=== PATIENT | female | born 1935 | race Caucasian/White ===

== ENCOUNTER 2019-11-02 09:51 | Outpatient (CLI) | payer MEDICARE, SELFPAY ==
--- NOTE | ~2019-11-02 | XR_ITS ---
EXAMINATION: XR chest 2V DATE: 11/02/2019 11:22 INDICATION: Hypertension TECHNIQUE: Frontal and lateral views of the chest are obtained COMPARISON: None FINDINGS: The lungs are free of acute opacities. There is no pleural effusion or pneumothorax. The ca rdiomediastinal silhouette is normal. There is moderate thoracic spondylosis. Calcified atheroscleros is is noted. IMPRESSION: 1. No acute cardiopulmonary abnormality. Reviewed, dictated and finalized at location A. EBACK RIDING INSTRUCTOR
[2019-11-02 11:18] LABS: Basophils Absolute Auto 0.1 K/mm3 (0.0-0.1); Basophils Percent Auto 0.8 % (0.2-1.2); Eosinophils Percent Auto 0.7 % (0-4.4); Hematocrit 47.1 % (37.0-47.0); Hemoglobin 15.1 g/dL (12.0-15.0); Immature Granulocyte Absolute 0.03 K/mm3 (0.00-0.031); Immature Granulocyte Percent A 0.5 % (0-0.5); Lymphocytes Absolute Auto 1.18 K/mm3 (0.9-3.2); Lymphocytes Percent Auto 19.7 % (18.3-44.2); Mean Corpuscular HGB Conc 32.1 g/dl (32-36); Mean Corpuscular Hemoglobin 28.5 pg (26-34); Mean Corpuscular Volume 88.9 fl (80-100); Mean Platelet Volume 9.5 fl (7.4-10.4); Monocytes Absolute Auto 0.5 K/mm3 (0.1-0.6); Monocytes Percent Auto 8.5 % (2.6-8.5); Neutrophils Absolute Auto 4.2 K/mm3 (1.3-6.7); Neutrophils Percent Auto 69.8 % (45.5-73.1); Platelet Count Result 268 k/mm3 (150-375); Red Cell Distribution Width 13.1 % (11.5-14.5)
[2019-11-02 11:26] LABS: Urine Cotinine NEGATIVE
[2019-11-02 11:31] LABS: Albumin Level 4.2 g/dL (3.5-5.1); Blood Urea Nitrogen 14 mg/dL (7-17); Calcium 9.6 mg/dL (8.4-10.2); Carbon Dioxide 29 mmol/L (22-30); Chloride 98 mmol/L (98-107); Estimated Glomerular Filt Rate > 60; Glucose 89 mg/dL (65-105); Potassium 3.7 mmol/L (3.4-5.0); Sodium 137 mmol/L (137-145)
[2019-11-02 12:33] LABS: Hemoglobin A1C 5.3 % (<5.7)
== END 2019-11-02 09:52 | disposition home or self-care (01) ==
PROVIDERS: PCP Family Medicine; Visit Provider Orthopaedic Surgery
DX: Z01.818 Encounter for other preprocedural examination (principal); R06.09 Other forms of dyspnea; I10 Essential (primary) hypertension; Z79.899 Other long term (current) drug therapy
CPT/HCPCS: 36415; 71046; 80048; 80307; 82040; 83036; 85025; 87070

== ENCOUNTER 2019-11-24 17:20 | Observation (INO) | payer MEDICARE, SELFPAY ==
[2019-11-02 10:20] VITALS: BP 190/86; PULSE 78; RESP 20; TEMP 36.6; O2SAT 98; BMI 27.3
--- NOTE | 2019-11-23 06:57 | HP_ITS ---
DATE OF SERVICE: 11/24/2019 ADMIT DIAGNOSIS: Degenerative joint disease, right knee. HISTORY OF PRESENT ILLNESS: The patient is an 84-year-old female patient of Dr. De La Cruz, who presents today for right total knee arthroplasty. She has been having pain in both of her knees for years, right greater than left. She has had viscosupplementation injections in 2016. She had cortisone injections about 10 months ago, which gave her minimal relief. She has been on meloxicam for the last year and a half, but continues to have severe symptoms in the knees, particularly on the right. She has advanced medial compartment arthritis in the right knee with prominent subluxation of the femur on the tibia. She is miserable on a daily basis and feels she would like to proceed with total knee arthroplasty at this point. PAST SURGERIES: She has had rotator cuff surgery done in , bunion surgery in , hysterectomy in 1976, gallbladder in , knee arthroscopy of the right knee in 2003. CURRENT MEDICATIONS: She takes amlodipine, benazepril 5/10 mg, meloxicam 15 mg daily, omeprazole 20 mg daily, ranitidine 150 mg daily. ALLERGIES: SHE IS ALLERGIC TO PENICILLIN, WHICH GIVES HER HIVES. ALSO, TRAMADOL CAUSED HER TO PASS OUT. SOCIAL HISTORY: She is a nonsmoker. REVIEW OF SYSTEMS: Negative. FAMILY HISTORY: Noncontributory. PHYSICAL EXAM: VITAL SIGNS: She is 5 feet 2 inches, 156 pounds. Other vital signs per nursing on the morning of surgery. HEENT: Grossly normal. LUNGS: Clear bilaterally. HEART: Regular rate and rhythm. EXTREMITIES: Her right knee range of motion is from 7 to 135 with a moderate effusion. No medial pseudolaxity to valgus stress. She has positive [place] maneuver. Muvd-pr-kofpbocn venous varicosities in both lower extremities. No history of DVT. No edema in the lower extremities. She has arthroscopy scars in the anterior aspect of the right knee. 2+ dorsalis pedis, absent posterior tibial pulse. Skin is all normal. Hip range of motion is full without discomfort. Negative Stinchfield maneuver. X-RAYS: Again showed advanced medial compartment arthritis with prominent medial subluxation of the femur on the tibia. Moderate hypertrophic patellofemoral changes as well. IMPRESSION: The patient has severe advanced medial compartment arthritis. It is very symptomatic. She would like to proceed with total knee arthroplasty. Surgical procedure as well as risks and complications were discussed. All questions were answered to proceed. The patient will avoid her meloxicam and any other aspirin, ibuprofen products 1 week prior to surgery. She will see Dr. De La Cruz for presurgical clearance. She is also going to see Dr. Painter, bean weigher for presurgical clearance. She underwent a stress test, which showed no definite evidence of ischemia or infarct, normal left ventricular ejection fraction at 93%. Nasal swab was negative. Chem panel is all within normal limits. Creatinine is 0.80 with GFR greater than 60. Hemoglobin is 15.1, platelets are 268. D I MT: Otilia
[2019-11-24] VITALS (12 sets, daily range): BP systolic 137–172; BP diastolic 57–78; PULSE 65–92; RESP 16–20; TEMP 36.2–37.2; O2SAT 95–100; BMI 27.3
--- NOTE | ~2019-11-24 | XR_ITS ---
EXAMINATION: XR knee RT 2V DATE: 11/24/2019 16:05 REPLANTING MACHINE CREWMAN INDICATION: Right total knee arthroplasty TECHNIQUE: 2 views right knee FINDINGS: There is a right total knee arthroplasty in expected position. Subcutaneous gas with fluid and air in the joint are consistent with recent surgery. No evidence of periprosthetic fracture. IMPRESSION: 1. Recent right total knee arthroplasty. Reviewed, dictated and finalized at location A. ANTING MACHINE CREWMAN
[2019-11-24] MEDS: LACTATED RINGERS 1,000 ML 30 ML IV CONT ×2 (10:25→15:50)
[2019-11-24] MEDS: IBUPROFEN IV 800 MG/200 ML 800 MG/200 ML BAG 400 MG IVPB (10:30)
--- NOTE | 2019-11-24 10:32 | WPDANESEPPF ---
Anes - Initial Pre Proc Eval Procedure: Operation Date: 11/24/19 12:00 Proposed Procedures p Right Total Knee Arthroplasty - Ford Aponte MD Date/Time: 11/24/19 10:32 Surgeon: Ford Aponte MD Pre Op Diagnosis: OA Right Knee Patient Data Age: 84 Gender: F Height: 1.57 m Weight: 67.9 kg Last Vital Signs Temp 36.6 C 11/02/19 10:20 Pulse 78 11/02/19 10:20 Resp 20 11/02/19 10:20 BP 190/86 H 11/02/19 10:20 Pulse Ox 98 11/02/19 10:20 Allergies Allergy/AdvReac Type Severity Reaction Status Date / Time Penicillins Allergy Swelling Verified 11/24/19 10:34 tramadol Allergy Fainting Verified 11/24/19 10:34 Home Medications Medication Instructions Recorded Confirmed Type amlodipine 2.5 mg-benazepril 10 mg 1 cap PO DAILY 09/20/19 11/02/19 History capsule calcium carbonate 600 mg (1,500 1 tablet PO BID 09/20/19 11/02/19 History mg)-vitamin D3 200 unit tablet cholecalciferol (vitamin D3) 25 1,000 unit PO DAILY 09/20/19 11/02/19 History mcg (1,000 unit) capsule docusate sodium 100 mg capsule 100 mg PO BID 09/20/19 11/02/19 History ferrous sulfate 325 mg (65 mg 325 mg PO BID 09/20/19 11/02/19 History iron) tablet meloxicam 15 mg tablet 15 mg PO DAILY PRN 09/20/19 11/02/19 History omeprazole 20 mg capsule,delayed 20 mg PO DAILY 09/20/19 11/02/19 History release psyllium husk 0.52 gram capsule 0.52 gm PO DAILY 09/20/19 11/02/19 History ranitidine HCl 150 mg tablet 150 mg PO BID 09/20/19 11/02/19 History vitamin B complex 1 tablet PO DAILY 09/20/19 11/02/19 History EC08/2019 - sr, lafb Other Studies: DATE: 10/06/2019 11:37 RN CARE TRANSITION INDICATION: Dyspnea. Chest pain. TECHNIQUE: Rest images were obtained following intravenous administration of 9.2 mCi Tc99m tetrofosmin (Myoview). The patient was infused intravenously with Lexiscan (regadenoson). Then, 28.5 mCi Tc99m tetrofosmin (Myoview) was administered intravenously, and stress images were obtained. Data was reconstructed into short axis and horizontal and vertical long axis SPECT images. Gated SPECT images were also obtained. COMPARISON: None. FINDINGS: There is no definite reversible or fixed perfusion abnormality to suggest ischemia or infarction. There is no segmental wall motion abnormality. Left ventricular ejection fraction measures 93%. IMPRESSION: 1. No definite ischemia or infarct. 2. Normal left ventricular ejection fraction measuring 93%. Reviewed, dictated and finalized at location A. CARE TRANSITION Exam Date: 10/06/2019 8:12 AM Complete two-dimensional, color flow and Doppler transthoracic echocardiogram is performed. Summary 1. Left ventricular chamber dimension is normal. 2. Left ventricular systolic function is normal, estimated at 65-70%. 3. There is mildly increased left ventricular wall thickness. 4. The left ventricular diastolic function is grade I diastolic dysfunction. 5. E/e' 13 is mildly elevated. 6. There is mild aortic valve sclerosis. 7. Moderate mitral annular calcification. 8. No pulmonary hypertension, estimated pulmonary arterial systolic pressure is 32 mmHg. Patient hx anesthesia problems: post op nausea/vomiting Family hx anesthesia problems: none PMFSH Past Medical History Medical History (Updated 11/24/19 @ 10:33 by Dung Fry MD) Anemia Arthritis Chronic headaches CARVER (dyspnea on exertion) Hypertension Surgical History Surgical History (Updated 09/20/19 @ 14:23 by Maggie Jeong CMA) History of section History of cholecystectomy History of hysterectomy History of right knee surgery History of rotator cuff surgery Family History Family History (Updated 09/20/19 @ 14:25 by Maggie Jeong CMA) Father Hypertension Mother Diabetes mellitus Heart disease Grandparent Myocardial infar
--- NOTE | 2019-11-24 12:10 | WPDHPUPDATE1 ---
History and Physical Update Update Date/Time: 11/24/19 12:10 History and Physical has been reviewed, including an updated exam of the patient. There are NO changes in the patient's condition. Risks, benefits, and alternatives have been discussed and questions answered. Patient agrees to proceed with procedure.
[2019-11-24] MEDS: AZTREONAM 2 GM in DEXTROSE 5% 100 ML IVPB (12:19)
[2019-11-24] MEDS: GENTAMICIN BONE CEMENT REFOBACIN 1 EACH TOPICAL (13:09)
--- NOTE | 2019-11-24 17:18 | PC.NURSE ---
This patient, Cathleen King, was admitted to -. Patient/family oriented to hospital policies and general routines including ID bracelet, bed and alarms, visiting hours, pain management, procedures, bathroom and other care routines, personal items, smoking policy, room service/diet, and visiting hours. Valuables list has been completed. Information on how to activate the Rapid Response Team has been discussed. Patient/Family are encouraged to report perceived risks to care and to ask questions if they do not understand what they are told or what they should do.
--- NOTE | 2019-11-24 17:52 | PM.PROC ---
Procedure Note - Detailed Date of procedure: 11/24/19 Pre-op diagnosis: OA Right Knee Post-op diagnosis: same Procedure performed: Right total knee replacement Description of procedure: Patient was brought to the operating room general anesthesia was administered of the right knee prepped draped usual fashion. Under anesthesia she had about a 3 or 4? flexion contracture flexion to low 130. She received 2 g of based female weight based vancomycin preoperatively. History of the throat swelling with penicillin in the past. The right leg was prepped draped usual fashion. Limb was exsanguinated and tourniquet elevated to 250 mm of mercury. A 7 inches longitudinal incision was made and a vastus medialis splitting approach utilized. Infrapatellar and suprapatellar fat pads were excised and a quadriceps synovectomy carried out. The patella had some wear medially otherwise had intact cartilage in the apical ridge in the lateral facette with no deformity and given her advanced age and the small size were patella 21 mm in thickness I felt non resurfacing was most appropriate for her. A conservative lateral facetectomy was performed. A guide elías was inserted down the femoral canal after aspiration canal contents using 5? valgus cutting bushing 9 mm of bone removed the distal femur. Dissection removed 9 laterally in about 7 half medially because of wear medially which is severe. Next the tibial plateau was cut. We removed 10 mm of bone the lateral tibial plateau measuring S skim cut off the medial tibial plateau. The knee was quite tight medially right relative to lateral. Had PCL was recessed. Medial tibial osteophyte anteromedially medially was removed. There is a large posterior medial osteophyte that we could not get to the at this we cannot sublux the knee enough this point. the medial capsule was peeled for about a cm below the cut surface the medial tibial plateau just enough to expose the medial osteophyte. At 90? of flexion the medial gap was 8 mm the lateral gap 10. The epicondylar axis and the Whitesides line were both drawn on the femur and 3? of external rotation matched this the best. the femur was cut to a size 62.5 vanguard. This gave a line to line cut anterior to posterior and medial collateral. We inserted a 10 mm CR insert and we had ample room in flexion but the knee was noticeably tighter medially compared to laterally and extension there was a significant flexion contracture at this point. next the tibia was sized to a 67 tibia which was positioned rotated relative to the anterior surface of the tibial plateau cut surfaces the medial 3rd of the tubercle on foot. Alignment was confirmed to be appropriate and this was punched in this position and this gave us the opportunity removing a large barn operator medial tibial osteophyte leaving about 2 mm of bone extending peripheral barn operator medial tibial component. we trialed with a 10 and there was a flexion contracture and we were loose in flexion. an additional 2 mm of bone removed the distal femur. Chamfer cuts revisited. Posterior femoral osteophyte was removed. Concern of central posterior release performed and we trialed again and this time the 11 came out but still had a little bit of play in flexion I trialed with a 12 which had appropriate stability in flexion but the 12 was too tight in extension therefore another mm bone was removed the distal femur chamfers revisited. This time on trialing with the 12 insert the knee came out to full extension with a negative bounce 0.5 mm medial to mm lateral opening at full extension and about a mm each opening at 90? of flexion normal anterior drawer stability during gravity flexion to 130. These lug hole drill was used on the femur. step drill was used on the tibia which was important on the sclerotic poly surface the medial tibial plateau. The bony surfaces were thoroughly irrigated and dried. two batches of methylmethacrylate well the gentamicin powder mixed medially
--- NOTE | 2019-11-24 18:08 | P.OP_ITS ---
Procedure Note - Detailed Date of procedure: 11/24/19 Pre-op diagnosis: OA Right Knee Surgeon: Ford Aponte MD Chief Engineer Waterworks: Gilles Cobos Estimated blood loss (mL): 100 Tourniquet time (min): 110 Drains: No Packing: No Pathology: none sent Complications: No immediate complications Condition: stable Disposition: PACU
[2019-11-24] MEDS: DOCUSATE SODIUM 100 MG CAPSULE PO (18:33)
[2019-11-24] MEDS: DEXTROSE 5%/0.45% SOD CHL 1,000 ML 80 ML IV CONT (18:33)
[2019-11-24] MEDS: ACETAMINOPHEN 500 MG TABLET 1000 MG PO ×2 (18:33→22:40)
--- NOTE | 2019-11-24 18:47 | PM.PNORT ---
Progress Note: A&P Additional Plan Patient is doing well. She is sitting up eating dinner in the bed with family. She states her pain is between a 0 and a 110 wiggle her toes up and tingling. She is cheerful Subjective Subjective Date/Time Seen: 11/24/19 18:47 Objective Data Vital Signs Vital Signs: Vital Signs - 24 hr 11/24/19 10:06 11/24/19 15:50 11/24/19 16:05 Temperature 36.2 C L 37.0 C Pulse Rate 87 71 79 Respiratory Rate 18 20 18 Blood Pressure 172/75 H 144/65 H 141/70 H Pulse Oximetry 98 100 98 11/24/19 16:20 11/24/19 16:35 11/24/19 16:50 Temperature Pulse Rate 91 85 86 Respiratory Rate 20 18 20 Blood Pressure 158/74 H 147/67 H 148/78 H Pulse Oximetry 100 95 97 11/24/19 17:05 11/24/19 17:20 11/24/19 17:35 Temperature 37.0 C 37.0 C Pulse Rate 88 92 88 Respiratory Rate 18 16 16 Blood Pressure 148/74 H 154/66 H 144/75 H Pulse Oximetry 95 99 99 11/24/19 18:05 Temperature 37.1 C Pulse Rate 86 Respiratory Rate 16 Blood Pressure 154/69 H Pulse Oximetry 98 Intake/Output Intake/Output: Intake & Output 11/21/19 11/22/19 11/23/19 11/24/19 23:59 23:59 23:59 23:59 Intake Total 850 Output Total 150 Balance 700 Meds/Results Medications: Active Medications Generic Name Dose Route Start Last Admin Trade Name Gus PRN Reason Stop Dose Admin Acetaminophen 1,000 mg 11/24/19 18:00 11/24/19 18:33 Tylenol Tablet PO 1,000 mg Q6HR ALEXANDRO Administration Amlodipine Besylate 2.5 mg 11/25/19 09:00 Norvasc PO DAILY [facility] Celecoxib 100 mg 11/24/19 17:00 Celebrex PO BIDWM ALEXANDRO Docusate Sodium 100 mg 11/24/19 17:20 11/24/19 18:33 Colace Capsule PO 100 mg BID ALEXANDRO Administration Enoxaparin Sodium 30 mg 11/25/19 09:00 Lovenox SUB-Q 12/07/19 09:01 Q12HR ALEXANDRO Famotidine 20 mg 11/24/19 21:00 Pepcid PO Q12HR [facility] Sodium Chloride 1,000 mls @ 125 mls/hr 11/24/19 17:20 Normal Saline Iv IV CONT .Q8H ALEXANDRO Vancomycin HCl 1,000 mg in 250 mls @ 250 mls/hr 11/24/19 22:00 Vancomycin 1,000 Mg/D5w 250 Ml IVPB 11/25/19 10:59 Q12H ALEXANDRO Dextrose/Sodium Chloride 1,000 mls @ 80 mls/hr 11/24/19 17:20 11/24/19 18:33 Dextrose 5% Sodium Chloride 0.45% IV CONT 80 mls/hr .[id number] [facility] Administration Aztreonam 1 gm/ Dextrose 50 mls @ 100 mls/hr 11/24/19 20:00 IVPB 11/25/19 12:29 Q8H [facility] Lisinopril 10 mg 11/25/19 09:00 Prinivil PO DAILY [facility] Magnesium Hydroxide 30 ml 11/24/19 17:20 Milk Of Magnesia PO BID PRN Constipation Naloxone HCl 0.1 mg 11/24/19 17:20 Narcan IV PUSH Q2M PRN Opiate Reversal Non-Formulary Medication 0.52 gm 11/25/19 09:00 Psyllium Husk [Daily Fiber] PO 12/25/19 09:01 DAILY [facility] Oxycodone HCl 2.5 mg 11/24/19 17:20 Roxicodone Ir Tablet PO Q4H PRN Pain Rated 7-10 Pantoprazole Sodium 40 mg 11/25/19 09:00 Protonix PO DAILY [facility] Vitamin B Complex cap 11/25/19 09:00 Vitamin B Complex PO DAILY [facility] Vitamin D 1,000 unit 11/25/19 09:00 Vitamin D PO DAILY [facility] Radiology Results: ITS Impressions Knee X-Ray 11/24/19 16:05 IMPRESSION: 1. Recent right total knee arthroplasty. Labs Labs: Laboratory Results - last 24 hr 11/24/19 10:12 Blood Type O Positive Antibody Screen Negative
[2019-11-24] MEDS: CELECOXIB 100 MG CAPSULE PO (20:08)
[2019-11-24] MEDS: AZTREONAM 1 GM in DEXTROSE 5% IN WATER 50 ML IVPB (20:08)
[2019-11-24] MEDS: FAMOTIDINE 20 MG TABLET PO (20:08)
[2019-11-25] VITALS (12 sets, daily range): BP systolic 113–151; BP diastolic 47–82; PULSE 68–80; RESP 16–20; TEMP 36.6–37.1; O2SAT 95–99
[2019-11-25] MEDS: AZTREONAM 1 GM in DEXTROSE 5% IN WATER 50 ML IVPB ×2 (04:34→11:52)
[2019-11-25] MEDS: ACETAMINOPHEN 500 MG TABLET 1000 MG PO ×3 (05:51→17:27)
[2019-11-25 06:20] LABS: Basophils Percent Auto 0.3 % (0.2-1.2); Eosinophils Percent Auto 0.1 % (0-4.4); Hematocrit 37.3 % (37.0-47.0); Hemoglobin 12.1 g/dL (12.0-15.0); Immature Granulocyte Absolute 0.07 K/mm3 (0.00-0.031); Immature Granulocyte Percent A 0.6 % (0-0.5); Lymphocytes Percent Auto 7.9 % (18.3-44.2); Mean Corpuscular HGB Conc 32.4 g/dl (32-36); Mean Corpuscular Hemoglobin 28.9 pg (26-34); Mean Platelet Volume 9.5 fl (7.4-10.4); Monocytes Absolute Auto 1.2 K/mm3 (0.1-0.6); Monocytes Percent Auto 9.3 % (2.6-8.5); Neutrophils Absolute Auto 10.3 K/mm3 (1.3-6.7); Neutrophils Percent Auto 81.8 % (45.5-73.1); Platelet Count Result 239 k/mm3 (150-375); Red Blood Count 4.19 M/mm3 (4.2-5.4); Red Cell Distribution Width 13.1 % (11.5-14.5); White Blood Count 12.6 K/mm3 (4.5-10.0)
[2019-11-25 06:34] LABS: Blood Urea Nitrogen 11 mg/dL (7-17); Calcium 8.1 mg/dL (8.4-10.2); Carbon Dioxide 28 mmol/L (22-30); Chloride 100 mmol/L (98-107); Estimated CRCL calculation 47 ml/min; Estimated Glomerular Filt Rate > 60; Glucose 126 mg/dL (65-105); Sodium 133 mmol/L (137-145)
--- NOTE | 2019-11-25 07:20 | PM.PNORT ---
Progress Note: A&P Additional Plan POD 1 alert , was having some nausea last night till about 8 pm doing much better today, wd-dry NVI, was up to chair for 2 hours last night, pain is well controlled, plan to send home today if pt does well with PT, if does not do well with PT may need to keep for additional night Subjective Subjective Date/Time Seen: 11/25/19 07:20 Objective Data Vital Signs Vital Signs: Vital Signs - 24 hr 11/24/19 10:06 11/24/19 15:50 11/24/19 16:05 Temperature 36.2 C L 37.0 C Pulse Rate 87 71 79 Respiratory Rate 18 20 18 Blood Pressure 172/75 H 144/65 H 141/70 H Pulse Oximetry 98 100 98 11/24/19 16:20 11/24/19 16:35 11/24/19 16:50 Temperature Pulse Rate 91 85 86 Respiratory Rate 20 18 20 Blood Pressure 158/74 H 147/67 H 148/78 H Pulse Oximetry 100 95 97 11/24/19 17:05 11/24/19 17:20 11/24/19 17:35 Temperature 37.0 C 37.0 C Pulse Rate 88 90 88 Respiratory Rate 18 16 16 Blood Pressure 148/74 H 154/66 H 144/75 H Pulse Oximetry 95 99 99 11/24/19 18:05 11/24/19 20:00 11/24/19 22:00 Temperature 37.2 C 36.7 C Pulse Rate 88 88 65 Respiratory Rate 16 16 Blood Pressure 146/67 H 137/57 L Pulse Oximetry 98 100 11/25/19 00:00 11/25/19 01:41 11/25/19 04:00 Temperature 36.7 C Pulse Rate 68 72 69 Respiratory Rate 16 Blood Pressure 151/58 H Pulse Oximetry 98 11/25/19 06:19 Temperature 36.8 C Pulse Rate 76 Respiratory Rate 18 Blood Pressure 140/60 Pulse Oximetry 99 Intake/Output Intake/Output: Intake & Output 11/22/19 11/23/19 11/24/19 11/25/19 23:59 23:59 23:59 23:59 Intake Total 900 1810 Output Total 150 2800 Balance 750 -990 Meds/Results Medications: Active Medications Generic Name Dose Route Start Last Admin Trade Name Freq PRN Reason Stop Dose Admin Acetaminophen 1,000 mg 11/24/19 18:00 11/25/19 05:51 Tylenol Tablet PO 1,000 mg Q6HR ALEXANDRO Administration Amlodipine Besylate 2.5 mg 11/25/19 09:00 Norvasc PO DAILY [facility] Celecoxib 100 mg 11/24/19 17:00 11/24/19 20:08 Celebrex PO 100 mg BIDWM [facility] Administration Docusate Sodium 100 mg 11/24/19 17:20 11/24/19 18:33 Colace Capsule PO 100 mg BID [facility] Administration Enoxaparin Sodium 30 mg 11/25/19 09:00 Lovenox SUB-Q 12/07/19 09:01 Q12HR [facility] Famotidine 20 mg 11/24/19 21:00 11/24/19 20:08 Pepcid PO 20 mg Q12HR [facility] Administration Vancomycin HCl 1,000 mg in 250 mls @ 250 mls/hr 11/24/19 22:00 11/25/19 00:20 Vancomycin 1,000 Mg/D5w 250 Ml IVPB 11/25/19 10:59 Infused Q12H ALEXANDRO Infusion Dextrose/Sodium Chloride 1,000 mls @ 80 mls/hr 11/24/19 17:20 11/25/19 04:35 Dextrose 5% Sodium Chloride 0.45% IV CONT Infused .[id number] [facility] Infusion Aztreonam 1 gm/ Dextrose 50 mls @ 100 mls/hr 11/24/19 20:00 11/25/19 04:34 IVPB 11/25/19 12:29 100 mls/hr Q8H [facility] Administration Lisinopril 10 mg 11/25/19 09:00 Prinivil PO DAILY [facility] Magnesium Hydroxide 30 ml 11/24/19 17:20 Milk Of Magnesia PO BID PRN Constipation Naloxone HCl 0.1 mg 11/24/19 17:20 Narcan IV PUSH Q2M PRN Opiate Reversal Oxycodone HCl 2.5 mg 11/24/19 17:20 Roxicodone Ir Tablet PO Q4H PRN Pain Rated 7-10 Psyllium Hydrophilic Mucilloid 1 packet 11/25/19 09:00 Metamucil Packet PO DAILY [facility] Vitamin B Complex 1 cap 11/25/19 09:00 Vitamin B Complex PO DAILY [facility] Vitamin D 1,000 unit 11/25/19 09:00 Vitamin D PO DAILY [facility] Radiology Results: ITS Impressions Knee X-Ray 11/24/19 16:05 IMPRESSION: 1. Recent right total knee arthroplasty. Labs Labs: Laboratory Results - last 24 hr 11/24/19 11/25/19 11/25/19 10:12 05:55 05:55 WBC 12.6 H RBC 4.19 L Hgb 12.1 D Hct 37.3 MCV 89.0 MCH 28.9 MCHC 32.4 RDW 13.1 Plt Count 239 MPV 9.5 Immature Gran % (Auto) 0.6 H Neut % (Auto) 81.8 H Lymph
--- NOTE | 2019-11-25 08:32 | PM.IMCN ---
Assessment and Plan Assessment and plan (1) Osteoarthritis of right knee: Code(s): M17.11 - Unilateral primary osteoarthritis, right knee Status: Acute Assessment and Plan: S/p RTKA per Dr. Aponte POD1. Patient is doing well post-operatively Pain management, DVT ppx, post-op care, PT/OT per Dr. Aponte Possibly discharge today. Patient is medicall stable from a Hospitalist standpoint. Will sign off. Please call with questions (2) Hypertension: Code(s): I10 - Essential (primary) hypertension Status: Acute Assessment and Plan: BP had been elvated perioperatively; she attributes this to stress from surgery. Today BP is 140s sys Continue home amlodipine/benazepril Recommended patient measure BP daily if feeling lightheaded or having other symptoms F/u with Agricultural Equipment Test Engineer as outpatient (3) Anemia: Code(s): D64.9 - Anemia, unspecified Status: Acute Assessment and Plan: Patient states this has been known for years and takes a twice daily iron pill. Presumably iron deficiency anemia. Continue home iron pill BID F/u with PCP as directed by their office (4) Grade I diastolic dysfunction: Code(s): I51.9 - Heart disease, unspecified Status: Acute Assessment and Plan: No actue issues; found on Echo in September. Patient tells me she is following up with Dr. Painter in November Additional Plan Thank you for allowing the Hospitalist team to care for this patient during their stay. Please call with any questions Supervising Physician for this Consult H&P is Dr. Armenta DOS: 11/25/2019 at roughly 8:15 am HPI Data of Consult Consult date: 11/25/19 Requesting Physician: Ford Aponte MD Primary Care Provider: Dewey De La Cruz, Consult Narrative Narrative: Cathleen King is a 84 year old female with history of HTN, GERD, grade I diastolic dysfunction, and OA of bilateral knees POD1 RTKA per Dr. Aponte; Hospitalist Service has been consulted for medical management of comorbid conditions. Patient states she has arthritis of both knees, however, over the past several years, her right knee has been more painful, progressively worsening to about a 7/10 most of the time. She had tried topical creams, oral analgesics, cortisone injections with little relief. She decided to proceed with RTKA with Dr. Aponte. Today, patient has no complaints other than a dry cough/dry throat; she is passing gas but no BM yet. She thinks she is doing well with PT/OT and is anticipating going home today pending progress with therapy and will be living with her son, Aurelio, for 1 week after discharge. Patient denies f/c/ns, headaches, dizziness, lightheadedness, changes in v/h, cp/palpitations, sob/cough, n/v/d/c, abd pain, dysphagia, calf pain/swelling, s/sx of stroke. Review of Systems Review of Systems: All systems reviewed & are unremarkable except as noted in HPI and below PMFSH Past Medical History Medical History (Updated 11/25/19 @ 08:45 by Jalen Browne PA-C) Anemia Arthritis Chronic headaches CARVER (dyspnea on exertion) Grade I diastolic dysfunction Hypertension Osteoarthritis of right knee Surgical History Surgical History History of bunionectomy History of section History of cholecystectomy History of hysterectomy History of right knee surgery History of rotator cuff surgery Family History Family History Father Hypertension Mother Diabetes mellitus Heart disease Grandparent Myocardial infarction Social History Social History Social History: Patient lives at home alone. She will be staying
[2019-11-25] MEDS: FAMOTIDINE 20 MG TABLET PO ×2 (08:44→20:29)
[2019-11-25] MEDS: CELECOXIB 100 MG CAPSULE PO ×2 (08:44→17:27)
[2019-11-25] MEDS: DOCUSATE SODIUM 100 MG CAPSULE PO ×2 (08:45→17:27)
[2019-11-25] MEDS: AMLODIPINE BESYLATE 2.5 MG TABLET PO (08:46)
[2019-11-25] MEDS: lisinopriL 10 MG TABLET PO (08:46)
[2019-11-25] MEDS: ENOXAPARIN 30 MG/0.3 ML SYRINGE SUB-Q ×2 (08:46→20:29)
[2019-11-25] MEDS: CHOLECALCIFEROL 1,000 UNIT TABLET 1000 UNITS PO (08:46)
[2019-11-25] MEDS: VITAMIN B COMPLEX CAPSULE 1 CAP PO (08:47)
--- NOTE | 2019-11-25 10:14 | WPDANESPN ---
Anes - Prog Note Post-Op Date/Time: 11/25/19 10:14 Vital Signs: Last Vital Signs Temp 98.2 F 11/25/19 06:19 Pulse 80 11/25/19 08:00 Resp 18 11/25/19 06:19 BP 140/60 11/25/19 06:19 Pulse Ox 95 11/25/19 09:47 I/O: Intake & Output 11/24/19 11/25/19 11/25/19 23:59 07:59 15:59 Intake Total 250 1810 360 Output Total 50 2800 700 Balance 200 -990 -340 Laboratory Tests 11/25/19 05:55 11/25/19 05:55 11/24/19 11/25/19 11/25/19 10:12 05:55 05:55 WBC 12.6 H RBC 4.19 L Hgb 12.1 D Hct 37.3 MCV 89.0 MCH 28.9 MCHC 32.4 RDW 13.1 Plt Count 239 MPV 9.5 Immature Gran % (Auto) 0.6 H Neut % (Auto) 81.8 H Lymph % (Auto) 7.9 L [place] % (Auto) 9.3 H Eos % (Auto) 0.1 Baso % (Auto) 0.3 Lymph # (Auto) 1.00 [place] # (Auto) 1.2 H Eos # (Auto) 0.0 Baso # (Auto) 0.0 Abs Immat Gran (auto) 0.07 H Absolute Neuts (auto) 10.3 H Absolute Nucleated RBC 0.0 Nucleated RBC % 0.0 Sodium 133 L Potassium 4.0 Chloride 100 Carbon Dioxide 28 BUN 11 Creatinine 0.70 Estim Creat Clear Calc 47 Estimated GFR > 60 Glucose 126 H Calcium 8.1 L Blood Type O Positive Antibody Screen Negative Patient Feedback: Patient satisfied with anesthetic care.
[2019-11-25] MEDS: PSYLLIUM POWDER PACKET 1 PACKET PO (20:29)
--- NOTE | 2019-11-25 23:29 | DS_ITS ---
DATE OF DISCHARGE: 11/25/2019 DIAGNOSIS: Degenerative joint disease of the right knee. HOSPITAL COURSE: The patient is an 84-year-old female who underwent right total knee arthroplasty by Dr. Aponte on November 24, 2019, underwent the procedure without any complications. Postoperatively, she has been afebrile. Vital signs are stable. Neurovascularly, she is intact. Her wound is dry. She has a Mediplex dressing over it. She had a little bit of nausea on the day of surgery, which was dissipated at about 8 or 9 o'clock p.m. The patient is weightbearing as tolerated. She is on Lovenox 30 mg b.i.d. for 12 days for DVT prophylaxis. We will follow this up with enteric-coated baby aspirin. She is getting oxycodone 2.5 mg, as well as scheduled Tylenol for pain. She is on Celebrex 100 mg twice a day as well. She will be discharged to home on November 25. The patient was advised to keep the leg elevated, but do her exercise on a regular basis. She has outpatient physical therapy starting on Friday. We will get a CBC next Friday since she is on Lovenox. If she has any questions concerns, she should call the office; otherwise, see her at the appointed date. Kelsey I MT: Otilia
[2019-11-26] VITALS: PULSE 76
[2019-11-26 04:00] VITALS: PULSE 84
[2019-11-26] MEDS: ACETAMINOPHEN 500 MG TABLET 1000 MG PO (05:08)
[2019-11-26 06:00] VITALS: BP 161/56; PULSE 85; RESP 18; TEMP 37; O2SAT 96
--- NOTE | 2019-11-26 07:22 | PM.PNORT ---
Progress Note: A&P Additional Plan POD 2 alert pt having severe anxiety about going home yesterday, is doing very well this am, wd-dry NVI, pain is well controlled, pt feels ready to go home today, will plan to have her do morning PT then send home Subjective Subjective Date/Time Seen: 11/26/19 07:22 Objective Data Vital Signs Vital Signs: Vital Signs - 24 hr 11/25/19 08:00 11/25/19 09:47 11/25/19 10:00 Temperature 36.6 C Pulse Rate 80 68 Respiratory Rate 18 Blood Pressure 113/47 L Pulse Oximetry 95 96 11/25/19 12:00 11/25/19 14:00 11/25/19 16:00 Temperature 36.9 C Pulse Rate 70 72 70 Respiratory Rate 18 Blood Pressure 132/82 Pulse Oximetry 98 11/25/19 20:00 11/25/19 22:00 11/26/19 00:00 Temperature 37.1 C Pulse Rate 77 78 76 Respiratory Rate 20 Blood Pressure 130/56 L Pulse Oximetry 97 11/26/19 04:00 11/26/19 06:00 Temperature 37.0 C Pulse Rate 84 85 Respiratory Rate 18 Blood Pressure 161/56 H Pulse Oximetry 96 Intake/Output Intake/Output: Intake & Output 11/23/19 11/24/19 11/25/19 11/26/19 23:59 23:59 23:59 23:59 Intake Total 900 2985 400 Output Total 150 3500 800 Balance 750 515 -400 Meds/Results Medications: Active Medications Generic Name Dose Route Start Last Admin Trade Name Freq PRN Reason Stop Dose Admin Acetaminophen 1,000 mg 11/24/19 18:00 11/26/19 05:08 Tylenol Tablet PO 1,000 mg Q6HR ALEXANDRO Administration Amlodipine Besylate 2.5 mg 11/25/19 09:00 11/25/19 08:46 Norvasc PO 2.5 mg DAILY ALEXANDRO Administration Celecoxib 100 mg 11/24/19 17:00 11/25/19 17:27 Celebrex PO 100 mg BIDWM ALEXANDRO Administration Docusate Sodium 100 mg 11/24/19 17:20 11/25/19 17:27 Colace Capsule PO 100 mg BID ALEXANDRO Administration Enoxaparin Sodium 30 mg 11/25/19 09:00 11/25/19 20:29 Lovenox SUB-Q 02/11/20 09:01 30 mg Q12HR ALEXANDRO Administration Famotidine 20 mg 11/24/19 21:00 11/25/19 20:29 Pepcid PO 20 mg Q12HR ALEXANDRO Administration Lisinopril 10 mg 11/25/19 09:00 11/25/19 08:46 Prinivil PO 10 mg DAILY ALEXANDRO Administration Magnesium Hydroxide 30 ml 11/24/19 17:20 Milk Of Magnesia PO BID PRN Constipation Naloxone HCl 0.1 mg 11/24/19 17:20 Narcan IV PUSH Q2M PRN Opiate Reversal Oxycodone HCl 2.5 mg 11/24/19 17:20 11/26/19 05:08 Roxicodone Ir Tablet PO 2.5 mg Q4H PRN Administration Pain Rated 7-10 Psyllium Hydrophilic Mucilloid 1 packet 11/25/19 21:00 11/25/19 20:29 Metamucil Packet PO 1 packet HS ALEXANDRO Administration Vitamin B Complex 1 cap 11/25/19 09:00 11/25/19 08:47 Vitamin B Complex PO 1 cap DAILY ALEXANDRO Administration Vitamin D 1,000 unit 11/25/19 09:00 11/25/19 08:46 Vitamin D PO 1,000 unit DAILY ALEXANDRO Administration Radiology Results: ITS Impressions Knee X-Ray 11/24/19 16:05 IMPRESSION: 1. Recent right total knee arthroplasty.
[2019-11-26] MEDS: ENOXAPARIN 30 MG/0.3 ML SYRINGE SUB-Q (08:31)
[2019-11-26] MEDS: FAMOTIDINE 20 MG TABLET PO (08:32)
[2019-11-26] MEDS: DOCUSATE SODIUM 100 MG CAPSULE PO (08:32)
[2019-11-26] MEDS: AMLODIPINE BESYLATE 2.5 MG TABLET PO (08:33)
[2019-11-26] MEDS: CELECOXIB 100 MG CAPSULE PO (08:33)
[2019-11-26] MEDS: VITAMIN B COMPLEX CAPSULE 1 CAP PO (08:33)
[2019-11-26] MEDS: lisinopriL 10 MG TABLET PO (08:33)
[2019-11-26] MEDS: CHOLECALCIFEROL 1,000 UNIT TABLET 1000 UNITS PO (08:33)
--- NOTE | 2019-11-26 10:50 | DS_ITS ---
DATE OF DISCHARGE: ADDENDUM: Patient's date of discharge was to be 11/25. The patient was having significant anxiety about going home. She is 84, somewhat frail, and did not feel comfortable about being discharged on 11/25. She did well throughout the day with physical therapy. On postop day #2, on 11/26, the patient was feeling much better. Her overall pain was improved and overall mind state was better to the point where she felt comfortable, was ready to be discharged home, so she will be discharged to home on 11/26 with all same orders previously. On postop day #2, she was alert, pleasant. She has been afebrile. Vital signs were stable. Her wound is dry. The patient will follow up in the office of Dr. Aponte at her appointed date. D I MT: Otilia
== END 2019-11-26 11:02 | disposition home or self-care (01) ==
LOC: ANH3MEDSUR 11-25 06:53
PROVIDERS: Admitting Provider Orthopaedic Surgery; PCP Family Medicine; Visit Provider Orthopaedic Surgery
PROC: (CPT 27447; principal; 2019-11-24 12:00)
DX: M17.11 Unilateral primary osteoarthritis, right knee (principal); F41.9 Anxiety disorder, unspecified; R54 Age-related physical debility; I11.9 Hypertensive heart disease without heart failure; D64.9 Anemia, unspecified; K21.9 Gastro-esophageal reflux disease without esophagitis; Z79.899 Other long term (current) drug therapy; Z88.0 Allergy status to penicillin
CPT/HCPCS: 27447; 36415; 71046; 73560; 80048; 80307; 82040; 83036; 85025; 86850; 86900; 86901; 87070; 97110; 97116; 97161; 97165; 97530; 97535; A9270; C1713; C1776; G0378; J0131; J0171; J1100; J1170; J1650; J1741; J2250; J2270; J2405; J2704; J2710; J2795; J3010; J3370; J7120

== ENCOUNTER 2021-02-08 09:36 | Outpatient (CLI) | payer MEDICARE, SELFPAY ==
[2021-02-08 11:10] LABS: Basophils Absolute Auto 0.1 K/mm3 (0.0-0.1); Basophils Percent Auto 0.8 % (0.2-1.2); Eosinophils Percent Auto 0.3 % (0-4.4); Immature Granulocyte Absolute 0.03 K/mm3 (0.00-0.031); Immature Granulocyte Percent A 0.5 % (0-0.5); Lymphocytes Absolute Auto 1.13 K/mm3 (0.9-3.2); Lymphocytes Percent Auto 19.2 % (18.3-44.2); Mean Corpuscular HGB Conc 33.3 g/dl (32-36); Monocytes Absolute Auto 0.5 K/mm3 (0.1-0.6); Monocytes Percent Auto 8.7 % (2.6-8.5); Neutrophils Absolute Auto 4.2 K/mm3 (1.3-6.7); Neutrophils Percent Auto 70.5 % (45.5-73.1); Platelet Count Result 277 k/mm3 (150-375); Red Blood Count 5.17 M/mm3 (4.2-5.4); Red Cell Distribution Width 13.2 % (11.5-14.5); White Blood Count 5.9 K/mm3 (4.5-10.0)
[2021-02-08 11:23] LABS: Hemoglobin A1C 5.2 % (<5.7)
[2021-02-08 11:24] LABS: Urine Cotinine NEGATIVE
== END 2021-02-08 09:37 | disposition home or self-care (01) ==
LOC: ANHSURGERY 09:42
PROVIDERS: PCP Family Medicine; Visit Provider Orthopaedic Surgery
DX: M17.12 Unilateral primary osteoarthritis, left knee (principal); Z01.818 Encounter for other preprocedural examination
CPT/HCPCS: 80307; 83036; 85025; 87070

== ENCOUNTER → 2021-02-17 01:15 | Outpatient (CLI) | payer MEDICARE, SELFPAY ==
[2021-02-18 00:40] LABS: SARS-CoV-2 RNA PCR Negative
== END ==
PROVIDERS: PCP Family Medicine; Visit Provider Orthopaedic Surgery
DX: Z01.812 Encounter for preprocedural laboratory examination (principal); Z20.822 Contact with and (suspected) exposure to COVID-19
CPT/HCPCS: C9803; U0003; U0005

== ENCOUNTER 2021-02-21 04:36 | Day surgery (SDC) | payer MEDICARE, SELFPAY ==
[2021-02-08 09:57] VITALS: BMI 27.5
[2021-02-08 10:54] VITALS: BP 190/80; PULSE 76; RESP 16; TEMP 37; O2SAT 98
--- NOTE | 2021-02-19 17:02 | PM.IMHP ---
H&P: HPI History of Present Illness Date/Time: 02/19/21 17:02 85-year-old female patient of Dr. Irving who presents today for a left total knee arthroplasty. She underwent right total knee arthroplasty 1 year ago and did very well with her recovery. She is very happy with her results. She has good range of motion as well as no pain in the knee. She is having a lot of pain in left knee at this point. It bothers her on a daily basis. She still is very active 85-year-old female. She takes care of her own home. She feels she would rather proceed with total knee arthroplasty rather continue nonsurgical treatment of the left knee. <JAMAR Acosta - Last Filed: 02/19/21 17:08> Chief Complaint: Left knee DJD <JAMAR Acosta - Last Filed: 02/19/21 17:08> Review of Systems Review of Systems: All systems reviewed & are unremarkable except as noted in HPI and below <JAMAR Acosta - Last Filed: 02/19/21 17:08> [facility] Past Medical History Medical History: Medical History (Updated 02/20/21 @ 15:27 by Dung Fry MD) Anemia Arthritis Chronic headaches CARVER (dyspnea on exertion) Dyslipidemia Grade I diastolic dysfunction Hypertension Osteoarthritis of right knee <JAMAR Acosta - Last Filed: 02/19/21 17:08> Surgical History Surgical History: Surgical History History of bunionectomy History of section History of cholecystectomy History of hysterectomy History of right knee surgery History of rotator cuff surgery <JAMAR Acosta - Last Filed: 02/19/21 17:08> Family History Family History: Family History Father Hypertension Mother Diabetes mellitus Heart disease Grandparent Myocardial infarction <JAMAR Acosta - Last Filed: 02/19/21 17:08> Social History Social History: Social History Social History: Patient lives at home alone. She will be staying with her son, Aurelio, whom she designates surrogate MDM, for 1 week after discharge for therapy. Her PCP is Dr. De La Cruz. She wishes to be listed as a Full Code Smoking status: Never smoker Additional smoking assessment comments: DENIES ANY FORM OF TOBACCO USE Alcohol intake: never Substance use: never Living arrangements: alone Spiritual care concerns: No Agree to blood products: Yes <JAMAR Acosta - Last Filed: 02/19/21 17:08> Meds Home Medications and Allergies Home medications: Home Medications Medication Instructions Recorded Confirmed Type cholecalciferol (vitamin D3) 25 1,000 unit PO DAILY 09/20/19 02/21/21 History mcg (1,000 unit) capsule docusate sodium 100 mg capsule 100 mg PO BID 09/20/19 02/21/21 History ferrous sulfate 325 mg (65 mg 325 mg PO BID 09/20/19 02/21/21 History iron) tablet psyllium husk 0.52 gram capsule 0.52 gm PO DAILY 09/20/19 02/21/21 History famotidine 20 mg tablet 20 mg PO BID tablet 07/04/20 02/21/21 History pravastatin 10 mg tablet 10 mg PO DAILY #30 tablet 01/30/21 02/21/21 Rx amlodipine-benazepril 1 cap PO DAILY 02/08/21 02/21/21 History calcium carbonate-vitamin D3 2 cap PO DAILY 02/08/21 02/21/21 History [Calcium 600 with Vitamin D3] omeprazole 20 mg PO DAILY 02/08/21 02/21/21 History riboflavin (vitamin B2) 250 mg PO DAILY 02/08/21 02/21/21 History <JAMAR Acosta - Last Filed: 02/19/21 17:08> Allergies/Adverse reactions: Allergies Allergy/AdvReac Type Severity Reaction Status Date / Time Penicillins Allergy Swelling/TROUBLE Verified 02/08/21 09:59 BREATHING/HIVES tramadol Allergy Fainting Verified 02/21/21 10:10 <JAMAR Acosta - Last Filed: 02/19/21 17:08> Exam Narrative: Exam Narrative: 85-year-old female very alert pleasant. She is 5 ft 1 and 156 lb. She walks without assistance. H
--- NOTE | 2021-02-20 15:27 | WPDANESEPPF ---
Anes - Initial Pre Proc Eval Procedure: Operation Date: 02/21/21 12:00 Proposed Procedures p Left Total Knee Arthroplasty - Ford Aponte MD Date/Time: 02/20/21 15:27 Surgeon: Ford Aponte MD Pre Op Diagnosis: OA Left Knee Patient Data Age: 85 Gender: F Height: 1.57 m Weight: 68.3 kg Last Vital Signs Temp 37.0 C 02/08/21 10:54 Pulse 76 02/08/21 10:54 Resp 16 02/08/21 10:54 BP 190/80 H 02/08/21 10:54 Pulse Ox 98 02/08/21 10:54 Allergies Allergy/AdvReac Type Severity Reaction Status Date / Time Penicillins Allergy Swelling/TROUBLE Verified 02/08/21 09:59 BREATHING/HIVES tramadol Allergy Fainting Verified 02/21/21 10:10 Home Medications Medication Instructions Recorded Confirmed Type cholecalciferol (vitamin D3) 25 1,000 unit PO DAILY 09/20/19 02/21/21 History mcg (1,000 unit) capsule docusate sodium 100 mg capsule 100 mg PO BID 09/20/19 02/21/21 History ferrous sulfate 325 mg (65 mg 325 mg PO BID 09/20/19 02/21/21 History iron) tablet psyllium husk 0.52 gram capsule 0.52 gm PO DAILY 09/20/19 02/21/21 History famotidine 20 mg tablet 20 mg PO BID tablet 07/04/20 02/21/21 History pravastatin 10 mg tablet 10 mg PO DAILY #30 tablet 01/30/21 02/21/21 Rx amlodipine-benazepril 1 cap PO DAILY 02/08/21 02/21/21 History calcium carbonate-vitamin D3 2 cap PO DAILY 02/08/21 02/21/21 History [Calcium 600 with Vitamin D3] omeprazole 20 mg PO DAILY 02/08/21 02/21/21 History riboflavin (vitamin B2) 250 mg PO DAILY 02/08/21 02/21/21 History Other Studies: EC08/2019 - sr, lafb Other Studies: DATE: 10/06/2019 11:37 CARDIOVASCULAR TECHNOLOGIST INDICATION: Dyspnea. Chest pain. TECHNIQUE: Rest images were obtained following intravenous administration of 9.2 mCi Tc99m tetrofosmin (Myoview). The patient was infused intravenously with Lexiscan (regadenoson). Then, 28.5 mCi Tc99m tetrofosmin (Myoview) was administered intravenously, and stress images were obtained. Data was reconstructed into short axis and horizontal and vertical long axis SPECT images. Gated SPECT images were also obtained. COMPARISON: None. FINDINGS: There is no definite reversible or fixed perfusion abnormality to suggest ischemia or infarction. There is no segmental wall motion abnormality. Left ventricular ejection fraction measures 93%. IMPRESSION: 1. No definite ischemia or infarct. 2. Normal left ventricular ejection fraction measuring 93%. Reviewed, dictated and finalized at location A. IOVASCULAR TECHNOLOGIST Exam Date: 10/06/2019 8:12 AM Complete two-dimensional, color flow and Doppler transthoracic echocardiogram is performed. Summary 1. Left ventricular chamber dimension is normal. 2. Left ventricular systolic function is normal, estimated at 65-70%. 3. There is mildly increased left ventricular wall thickness. 4. The left ventricular diastolic function is grade I diastolic dysfunction. 5. E/e' 13 is mildly elevated. 6. There is mild aortic valve sclerosis. 7. Moderate mitral annular calcification. 8. No pulmonary hypertension, estimated pulmonary arterial systolic pressure is 32 mmHg. Patient hx anesthesia problems: none Family hx anesthesia problems: none PMFSH Past Medical History Medical History (Updated 02/20/21 @ 15:27 by Dung Fry MD) Anemia Arthritis Chronic headaches CARVER (dyspnea on exertion) Dyslipidemia Grade I diastolic dysfunction Hypertension Osteoarthritis of right knee Surgical History Surgical History History of bunionectomy History of section History of cholecystectomy History of hysterectomy History of right knee surgery History of rotator cuff surgery Family History Family History Father Hypertension Mother Diabetes mellitus
[2021-02-21] VITALS (16 sets, daily range): BP systolic 141–190; BP diastolic 58–81; PULSE 72–87; RESP 14–23; TEMP 36.3–36.9; O2SAT 89–100
--- NOTE | ~2021-02-21 | XR_ITS ---
EXAMINATION: XR knee LT 2V DATE: 02/21/2021 16:09 CDT INDICATION: Left total knee arthroplasty TECHNIQUE: 2 views left knee FINDINGS: There is a left total knee arthroplasty in expected position. Subcutaneous gas with fluid and air in the joint are consistent with recent surgery. No evidence of periprosthetic fracture. IMPRESSION: 1. Recent left total knee arthroplasty. Reviewed, dictated and finalized at location B.
[2021-02-21] MEDS: LACTATED RINGERS 1,000 ML 30 ML IV CONT ×2 (11:05→16:00)
[2021-02-21] MEDS: ACETAMINOPHEN 500 MG TABLET 1000 MG PO (11:10)
[2021-02-21] MEDS: TRANEXAMIC ACID 1,000MG/ISO100 1,000 MG/100 ML BAG 200 MG IVPB (11:21)
--- NOTE | 2021-02-21 12:09 | WPDHPUPDATE1 ---
History and Physical Update Update Date/Time: 02/21/21 12:09 History and Physical has been reviewed, including an updated exam of the patient. There are NO changes in the patient's condition. Risks, benefits, and alternatives have been discussed and questions answered. Patient agrees to proceed with procedure.
[2021-02-21] MEDS: AZTREONAM 2 GM in DEXTROSE 5% 100 ML 200 ML IVPB (12:40)
[2021-02-21] MEDS: VANCOMYCIN HCL 1,000 MG VIAL 3000 MG IRRIGATION (13:08)
[2021-02-21] MEDS: TRANEXAMIC ACID 1,000 MG/10 ML AMPUL 1000 MG IV PUSH (14:56)
--- NOTE | 2021-02-21 16:06 | PM.PROC ---
Procedure Note - Detailed Date of procedure: 02/21/21 Pre-op diagnosis: OA Left Knee Post-op diagnosis: same Procedure performed: Left total knee arthroplasty Description of procedure: Patient was brought to the operating room and general anesthesia was administered the left knee prepped draped usual fashion. She received 2 g of a strain am weight based vancomycin 1 g of tranexamic acid preoperatively in the left leg was prepped draped usual fashion. Limb was exsanguinated tourniquet elevated to 250 mmHg. A 7 in longitudinal midline incision was used in the vastus medialis splitting approach utilized splitting the vastus medialis at the superior pole of patella. Infrapatellar and suprapatellar fat pads were excised the quadriceps synovectomy carried out. The patella had normal cartilage on it the had small peripheral osteophytes were trimmed and I felt it was most appropriate for non resurfacing is a was quite small. Guide elías was inserted down the femoral canal after aspiration of canal contents using the 5 degree valgus cutting bushing 9 mm of bone removed the distal femur. 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 Next the tibial plateau was cut. We cut a skim cut off the low point the medial tibial plateau removing about 1 mm and this removed about 9 mm laterally. Meniscal remnants were excised. She did not have a varus deformity preoperatively and therefore we did not do a significant removal of medial osteophytes. Flexion gap was 8 mm medially 12 mm laterally at this time at 90?. For degrees of external rotation matched Whitesides line appropriately and the femur was initially cut to a size 62.5. This was just a little bit too wide with a mm of overhang medially and laterally. The tibia was sized to a 67 and tray was placed at the proper rotation referenced off the anterior plane of the tibial plateau the medial 1/3 tibia tubercle and the foot. This was punched and we trialed. The knee came out to a degree or 2 from full extension with a 10 mm insert was too loose in flexion and I felt that the 12 insert was more appropriate in flexion a 13 see me in a little bit snug. The 11 again came out only a couple of degrees from full extension which I felt would be rectified by posterior capsular release as she did have a 7 degree flexion contracture preoperatively. The 13 lacked about 8? of extension and was tight. An additional 2 mm of bone removed the distal femur posterior femoral osteophyte removed. Also we downsized to the size 60 with the 60 AP cutting block the anterior chamfer and anterior cuts revisited and with posterior central capsular release performed the knee was trialed and the 12 seemed appropriate in flexion and extension with about 2 mm of medial play in extension 3 mm lateral plate. The 13 was just a little bit snug at 90? of flexion and still had a negative bounce in extension. Lug holes were drilled in the femur. Step drill was used to make multiple perforations in the sclerotic part of the medial tibial plateau remade the skim cut. The lateral plateau was somewhat osteopenic. Two batches of methylmethacrylate Biomet or mixed 1 containing gentamicin powder the cement was applied to the tibial component and the femoral component pressurized into the tibia tibial component 67 fully seated cement applied the femur and the 60 CR femoral component fully seated the knee brought into extension with a 12 mm 5 and 1 insert. Tourniquet was least 115 minutes. The wound was irrigated with antibiotic solution and the cement allowed to harden after which excess cement was sought for removed and we trialed and the 12 mm insert we a little bit of extra play I felt in both flexion and extension and the 13 had appropriate feel opening up extension 2 mm medially 3 mm laterally and appropriate stability at mid flexion and gravity flexion to 135. The 13 insert was placed without difficulty locked with a locking pin range of motio
[2021-02-21] MEDS: fentaNYL CITRATE INJ (*CRX) 100 MCG/2 ML VIAL 25 MCG IV PUSH ×2 (16:20→16:33)
[2021-02-21] MEDS: LABETALOL HCL INJ 100 MG/20 ML VIAL IV PUSH (16:38)
[2021-02-21] MEDS: hydrALAZINE HCL 20 MG/ML VIAL 5 MG IV PUSH (17:07)
--- NOTE | 2021-02-21 17:51 | ADMGEN ---
This patient, Cathleen King, was admitted to Medical Room 246-01. Patient/family oriented to hospital policies and general routines including ID bracelet, bed and alarms, visiting hours, pain management, procedures, bathroom and other care routines, personal items, smoking policy, room service/diet, and visiting hours. Information on how to activate the Rapid Response Team has been discussed. Patient/Family are encouraged to report perceived risks to care and to ask questions if they do not understand what they are told or what they should do.
[2021-02-21] MEDS: SODIUM CHLORIDE 0.9% IV 1,000 ML 125 ML IV CONT (18:13)
[2021-02-21] MEDS: oxyCODONE HCL (*CRX) 2.5 MG TAB IR PO ×2 (18:13→21:08)
[2021-02-21] MEDS: DOCUSATE SODIUM 100 MG CAPSULE PO (18:13)
[2021-02-21 18:45] LABS: Mean Platelet Volume 9.4 fl (7.4-10.4); Platelet Count Result 259 k/mm3 (150-375)
[2021-02-21 18:57] LABS: Estimated CRCL calculation 40 ml/min; Estimated Glomerular Filt Rate > 60
[2021-02-21] MEDS: ACETAMINOPHEN 325 MG TABLET 650 MG PO (19:16)
[2021-02-21] MEDS: SENNA/DOCUSATE SODIUM TABLET 2 TAB PO (21:09)
[2021-02-21] MEDS: AZTREONAM 1 GM in DEXTROSE 5% IN WATER 50 ML 100 ML IVPB (21:09)
--- NOTE | 2021-02-21 23:17 | PM.IMCN ---
Assessment and Plan Assessment and plan (1) History of total left knee replacement: Code(s): Z96.652 - Presence of left artificial knee joint Status: Acute Assessment and Plan: Postop care per orthopedic physician. DVT prophylaxis per orthopedic physician. Postoperatively. She has already been up in the chair today. PT and OT per orthopedic physician. Pain management per orthopedic physician. The patient appears to be on Lovenox. (2) Grade I diastolic dysfunction: Code(s): I51.9 - Heart disease, unspecified Status: Acute Assessment and Plan: Continue with home medications. (3) Anemia: Code(s): D64.9 - Anemia, unspecified Status: Acute (4) Hypertension: Code(s): I10 - Essential (primary) hypertension Status: Acute Assessment and Plan: Patient is on Norvasc and benazepril. Continue with his home medication as long as her blood pressure allows. Blood pressure is 141/58 at this time. (5) Dyslipidemia: Code(s): E78.5 - Hyperlipidemia, unspecified Status: Chronic Assessment and Plan: Continue with pravastatin. HPI Data of Consult Consult date: 02/21/21 Requesting Physician: Ford Aponte MD Primary Care Provider: Dewey De La Cruz, Consult Narrative Narrative: Cathleen King is a 85 year old female this is a 85-year-old female patient who has severe osteoarthritis. She tells me that she has bone on bone. They have tried conservative measures with her osteoarthritis and just did not seem to seem to work. The patient was having severe pain to her left knee that was affecting her daily life. The patient had a right total knee arthroplasty 1 year ago and did very well with it. The patient stated that her left knee pain bothers her every single day. She is also a very active 85-year-old. The patient proceeded with a left total hip knee arthroplasty per Dr. elizalde today. Please see the procedure note. The patient had been sitting up in the chair without any difficulties tonight. She had just taken out her hearing aids and was getting ready to go to bed when I saw her. The hospitalist group is seeing the patient is a consultation for medical management. The patient was admitted for regular sdc per orthopedic doctor who is the admitting physician.. The patient in consultation and that I greatly appreciate the consult. Review of Systems Review of Systems: All systems reviewed & are unremarkable except as noted in HPI and below Constitutional: Constitutional: Reports as per HPI and Reports no additional constitutional complaints Eyes: Eyes: Reports as per HPI and Reports no additional eye complaints ENT: Reports system reviewed and no additional complaints, except as documented and Reports Normal hearing present Cardiovascular: Cardiovascular: Reports no additional cardiovascular complaints Respiratory: Respiratory: Reports no additional respiratory complaints and Reports no additional respiratory complaints Gastrointestinal: Gastrointestinal: Reports as per HPI and Reports no additional gastrointestinal complaints Musculoskeletal: Musculoskeletal: Reports no additional musculoskeletal complaints Integumentary/Breasts: Skin/Breast: Reports system reviewed and no additional complaints, except as docu and Reports as per HPI Neurologic: Reports system reviewed and no additional complaints, except as documented, Reports as per HPI and Reports Normal hearing present Psychiatric: Psychiatric: Reports no additional psychiatric complaints and Reports as per HPI Endocrine: Endocrine: Reports no additional endocrine complaints Hematologic/Lymphatic: Hematologic/Lymphatic: Reports no additional hematologic/lymphatic complaints Allergic/Immunologic: Allergic/Immunologic: Reports no additional allergic/immunologic complaints [facility] Past Medical History Medical History (Updated 02/21/21 @ 23:35 by Nena Washington NP) Anemia A
[2021-02-22] MEDS: ACETAMINOPHEN 325 MG TABLET 650 MG PO ×3 (00:13→12:04)
[2021-02-22] MEDS: oxyCODONE HCL (*CRX) 2.5 MG TAB IR PO ×4 (00:14→12:10)
[2021-02-22 03:17] VITALS: BP 161/56; PULSE 67; RESP 20; TEMP 36.4; O2SAT 97
[2021-02-22] MEDS: AZTREONAM 1 GM in DEXTROSE 5% IN WATER 50 ML 100 ML IVPB ×2 (04:13→12:04)
[2021-02-22 05:33] LABS: Basophils Percent Auto 0.2 % (0.2-1.2); Hematocrit 38.3 % (37.0-47.0); Hemoglobin 12.3 g/dL (12.0-15.0); Immature Granulocyte Absolute 0.06 K/mm3 (0.00-0.031); Immature Granulocyte Percent A 0.5 % (0-0.5); Lymphocytes Absolute Auto 1.01 K/mm3 (0.9-3.2); Mean Corpuscular HGB Conc 32.1 g/dl (32-36); Mean Corpuscular Hemoglobin 28.4 pg (26-34); Mean Corpuscular Volume 88.5 fl (80-100); Mean Platelet Volume 9.7 fl (7.4-10.4); Monocytes Absolute Auto 1.5 K/mm3 (0.1-0.6); Monocytes Percent Auto 11.9 % (2.6-8.5); Neutrophils Percent Auto 79.4 % (45.5-73.1); Platelet Count Result 248 k/mm3 (150-375); Red Blood Count 4.33 M/mm3 (4.2-5.4); Red Cell Distribution Width 13.2 % (11.5-14.5); White Blood Count 12.6 K/mm3 (4.5-10.0)
[2021-02-22 05:42] LABS: Anion Gap 3 mmol/L (8-16); Blood Urea Nitrogen 10 mg/dL (7-17); Calcium 8.1 mg/dL (8.4-10.2); Carbon Dioxide 29 mmol/L (22-30); Chloride 103 mmol/L (98-107); Estimated CRCL calculation 46 ml/min; Estimated Glomerular Filt Rate > 60; Glucose 116 mg/dL (65-105); Potassium 3.9 mmol/L (3.4-5.0); Sodium 135 mmol/L (137-145)
--- NOTE | 2021-02-22 07:08 | PM.PNORT ---
Progress Note: A&P Additional Plan POD 1 alert avss NVI dressing is dry. Pt has been up to restroom multiple times overnight, no nausea. pain is well controlled. labs-noted, overall pt is doing very well, she will work with PT today and plan to send home this afternoon Subjective Subjective Date/Time Seen: 02/22/21 07:08 Objective Data Vital Signs Vital Signs: Vital Signs - 24 hr 02/21/21 11:15 02/21/21 16:00 02/21/21 16:15 Temperature 36.9 C 36.8 C Pulse Rate 85 83 85 Respiratory Rate 23 H 20 Blood Pressure 152/79 H 179/80 H 183/78 H Pulse Oximetry 99 97 99 02/21/21 16:30 02/21/21 16:38 02/21/21 16:45 Temperature Pulse Rate 87 85 72 Respiratory Rate 22 H 22 H Blood Pressure 190/81 H 172/69 H Pulse Oximetry 99 100 02/21/21 17:00 02/21/21 17:02 02/21/21 17:15 Temperature Pulse Rate 74 81 Respiratory Rate 20 16 Blood Pressure 184/73 H 183/72 H Pulse Oximetry 89 L 97 97 02/21/21 17:20 02/21/21 17:30 02/21/21 17:44 Temperature 36.7 C Pulse Rate 79 78 77 Respiratory Rate 16 16 14 Blood Pressure 171/72 H 169/65 H 160/62 H Pulse Oximetry 98 97 99 02/21/21 18:00 02/21/21 19:17 02/21/21 20:00 Temperature 36.7 C 36.3 C L Pulse Rate 80 81 81 Respiratory Rate 16 18 18 Blood Pressure 165/79 H 141/58 H Pulse Oximetry 100 97 97 02/21/21 23:17 02/22/21 03:17 Temperature 36.5 C 36.4 C Pulse Rate 72 67 Respiratory Rate 20 20 Blood Pressure 153/60 H 161/56 H Pulse Oximetry 97 97 Intake/Output Intake/Output: Intake & Output 02/19/21 02/20/21 02/21/21 02/22/21 23:59 23:59 23:59 23:59 Intake Total 650 590 Output Total 150 300 Balance 500 290 Meds/Results Medications: Active Medications Generic Name Dose Route Start Last Admin Trade Name Freq PRN Reason Stop Dose Admin Acetaminophen 650 mg 02/21/21 18:00 02/22/21 05:28 Acetaminophen 325 Mg Tablet PO 650 mg Q6HR [facility] Administration Amlodipine Besylate 5 mg 02/22/21 09:00 Amlodipine Besylate 5 Mg Tablet PO 03/24/21 09:01 DAILY [facility] Calcium Carbonate 1,000 mg 02/22/21 09:00 Calcium/Vitamin D 500 Mg Tablet PO QAM [facility] Celecoxib 100 mg 02/22/21 08:00 Celecoxib 100 Mg Capsule PO DAILY@0800 [facility] Docusate Sodium 100 mg 02/21/21 17:32 02/21/21 18:13 Docusate Sodium 100 Mg Capsule PO 100 mg BID [facility] Administration Enoxaparin Sodium 30 mg 02/22/21 09:00 Enoxaparin 30 Mg/0.3 Ml Syringe SUB-Q 03/06/21 09:01 Q12HR [facility] Famotidine 20 mg 02/22/21 09:00 Famotidine 20 Mg Tablet PO BID [facility] Aztreonam 1 gm/ Dextrose 50 mls @ 100 mls/hr 02/21/21 20:00 02/22/21 04:45 IVPB 02/22/21 12:29 Infused Q8H [facility] Infusion Lisinopril 10 mg 02/22/21 09:00 Lisinopril 10 Mg Tablet PO QAM [facility] Naloxone HCl 0.1 mg 02/21/21 17:32 Naloxone Hcl 0.4 Mg/Ml Vial IV PUSH Q2M PRN Opiate Reversal Oxycodone HCl 2.5 mg 02/21/21 17:32 02/22/21 05:28 Oxycodone Hcl (*Crx) 2.5 Mg Tab Ir PO 2.5 mg Q4HR [facility] Administration Oxycodone HCl 2.5 mg 02/21/21 17:32 Oxycodone Hcl (*Crx) 2.5 Mg Tab Ir PO Q4H PRN Pain Rated 7-10 Pantoprazole Sodium 20 mg 02/22/21 09:00 Pantoprazole Sod Sesquihydrate 20 Mg Tab PO 03/24/21 09:01 DAILY [facility] Polyethylene Glycol 17 gm 02/22/21 09:00 Polyethylene Glycol 3350 17 Gm Powd.Pack PO QAM [facility] Pravastatin Sodium 10 mg 02/22/21 09:00 Pravastatin Sodium 10 Mg Tablet PO DAILY [facility] Psyllium Hydrophilic Mucilloid 1 packet 02/22/21 09:00 Psyllium Powder Packet PO 03/24/21 09:01 DAILY [facility] Senna/Docusate Sodium 2 tab 02/21/21 17:32 02/21/21 21:09 Senna/Docusate Sodium Tablet PO 2 tab BID [facility] Administration Vitamin D 1,000 units 02/22/21 09:00 Cholecalciferol 1,000 Units Tablet PO DAILY [facility] Radiology Results: ITS Impressions Knee X-Ray 02/21/21 16:09 IMPRESSION: 1. Recent left total knee arthroplasty. L
--- NOTE | 2021-02-22 07:14 | PM.DS ---
DS: Admitting Diagnosis Admitting Diagnosis Admitting Diagnosis: left knee DJD DS: Summary Hospital Course Hospital Course: stable Time Spent with Patient Time attestation: Total time spent providing and/or coordinating discharge services: 85-year-old female who underwent left total knee arthroplasty on 02/21/2021. Underwent the procedure without any complications. Postoperatively she has been afebrile vital Signs been stable, neurovascularly she is intact wound is dry. She has a Mepilex dressing over it. She is weight-bearing as tolerated. She was up multiple times on the evening surgery to the restroom. She has not worked with therapy day of surgery because arriving laid on the floor. Will work with therapy several times on postop day 1. Patient is on Lovenox 30 mg b.i.d. for the 1st 2 weeks followed by baby aspirin twice a day for DVT prophylaxis. Her pain is well controlled with scheduled Tylenol 650 mg as well as 2.5 mg oxycodone. She is also on 100 mg of Celebrex. Patient overall is doing very well. She is very familiar with her recovery, she has had a right total knee in the past. His outpatient therapy starting next Friday. She will also go home on MiraLax and Senokot. Patient was advised any questions or concerns when she goes home she should call the office otherwise will see her at her appointment date. DS: Data Data Completed and Pending Labs on day of discharge: Labs from last 24 hours 02/22/21 02/22/21 02/21/21 04:47 04:47 18:17 WBC 12.6 H RBC 4.33 Hgb 12.3 Hct 38.3 MCV 88.5 MCH 28.4 MCHC 32.1 RDW 13.2 Plt Count 248 MPV 9.7 Immature Gran % (Auto) 0.5 Neut % (Auto) 79.4 H Lymph % (Auto) 8.0 L [place] % (Auto) 11.9 H Eos % (Auto) 0.0 Baso % (Auto) 0.2 Lymph # (Auto) 1.01 [place] # (Auto) 1.5 H Eos # (Auto) 0.0 Baso # (Auto) 0.0 Abs Immat Gran (auto) 0.06 H Absolute Neuts (auto) 10.0 H Absolute Nucleated RBC 0.0 Nucleated RBC % 0.0 Sodium 135 L Potassium 3.9 Chloride 103 Carbon Dioxide 29 Anion Gap 3 L BUN 10 Creatinine 0.70 0.80 Estim Creat Clear Calc 46 40 Estimated GFR > 60 > 60 Glucose 116 H Calcium 8.1 L Blood Type Antibody Screen 02/21/21 02/21/21 18:17 10:16 WBC RBC Hgb Hct MCV MCH MCHC RDW Plt Count 259 MPV 9.4 Immature Gran % (Auto) Neut % (Auto) Lymph % (Auto) [place] % (Auto) Eos % (Auto) Baso % (Auto) Lymph # (Auto) [place] # (Auto) Eos # (Auto) Baso # (Auto) Abs Immat Gran (auto) Absolute Neuts (auto) Absolute Nucleated RBC Nucleated RBC % Sodium Potassium Chloride Carbon Dioxide Anion Gap BUN Creatinine Estim Creat Clear Calc Estimated GFR Glucose Calcium Blood Type O Positive Antibody Screen Negative Discharge Plan Discharge Patient Disposition: Home, Self-Care Discharge Instructions: FORD APONTE M.D [facility], [address] [address] POST-OPERATIVE DISCHARGE INSTRUCTIONS TOTAL KNEE ARTHROPLASTY 1. When resting, lie on back with leg elevated above hear to minimize swelling. Significant swelling could indicate a blood clot and if this occurs call the office (or go to the ER) to have a venous ultrasound. 2. Do exercise 5 times a day. 3. Do not sit with leg down except for meals. 4. Wound Care: Nursing will give additional dressings at discharge. Patient to change dressing at home 1 week from surgery, then maintain until seen in office. 5. May shower with dressing in place. 6. Follow weight bearing status instructions. Stand Alone Forms: General Discharge Instructions Follow-up/Referrals: Ford Aponte MD [Physician] - Keep Reg. Scheduled Appt. Discharge Medications: New acetaminophen [Mapap (acetaminophen)] 325 mg Tablet 650 mg PO Q6HR Qty: 90 RF: 0 senno
[2021-02-22] MEDS: SENNA/DOCUSATE SODIUM TABLET 2 TAB PO (08:38)
[2021-02-22] MEDS: polyethylene glycoL 3350 17 GM POWD.PACK PO (08:39)
[2021-02-22] MEDS: ENOXAPARIN 30 MG/0.3 ML SYRINGE SUB-Q (08:39)
[2021-02-22] MEDS: DOCUSATE SODIUM 100 MG CAPSULE PO (08:39)
[2021-02-22] MEDS: CELECOXIB 100 MG CAPSULE PO (08:39)
[2021-02-22] MEDS: PRAVASTATIN SODIUM 10 MG TABLET PO (08:40)
[2021-02-22] MEDS: lisinopriL 10 MG TABLET PO (08:40)
[2021-02-22] MEDS: amLODIPine BESYLATE 5 MG TABLET PO (08:40)
[2021-02-22] MEDS: PANTOPRAZOLE SOD SESQUIHYDRATE 20 MG TAB PO (08:40)
[2021-02-22] MEDS: FAMOTIDINE 20 MG TABLET PO (08:40)
[2021-02-22] MEDS: PSYLLIUM POWDER PACKET 1 PACKET PO (08:40)
[2021-02-22] MEDS: CHOLECALCIFEROL 1,000 UNITS TABLET 1000 UNITS PO (08:40)
--- NOTE | 2021-02-22 08:54 | PM.IMPN ---
Progress Note: A&P Assessment and Plan (1) History of total left knee replacement: Code(s): Z96.652 - Presence of left artificial knee joint Status: Acute Assessment and Plan: Underwent left total knee arthroplasty on 02/21/[address] Aponte. Tolerated procedure well. Pain is well controlled. Further management per orthopedic surgery. She will be discharged home today. She will continue outpatient PT starting 02/26/21. (2) Grade I diastolic dysfunction: Code(s): I51.9 - Heart disease, unspecified Status: Acute Assessment and Plan: Last echo was September 2019 which showed normal EF and grade I diastolic dysfunction. She appears euvolemic. (3) Anemia: Code(s): D64.9 - Anemia, unspecified Status: Acute Assessment and Plan: H&H is stable. (4) Hypertension: Code(s): I10 - Essential (primary) hypertension Status: Acute Assessment and Plan: BP reviewed and is elevated, likely secondary to pain. Seems to be slowly improving on POD 1. Last BP 161/56. Continue amlodipine and benazapril. Monitor blood pressure trends. Anticipate improvement in BP as pain improves. (5) Dyslipidemia: Code(s): E78.5 - Hyperlipidemia, unspecified Status: Chronic Assessment and Plan: Continue with pravastatin. Additional Plan Thank you for allowing us to follow along with this patient. Please call should any further questions arise. Subjective Date/time seen: 02/22/21 08:54 Interval history: Date of service: 02/22/2021 Iona is an 85 year old female with a history of anemia, dyslipidemia, gradie I diastolic dysfunction, hypertension who is seen in follow up after a left total knee arthroplasty on 02/21/21. She tolerated the procedure well. She has just been up and walking with therapy and felt she did well and had no difficulties. She rates her knee pain as 8/10 after walking around. She is more comfortable when resting. She complains of stiffness in the knee, especially when she is sitting down. She denies any other issues. She has been passing gas. She has not yet had a bowel movement postoperatively. She denies nausea, vomiting, fever, chills. She has been eating well. No shortness of breath, cough, chest pain, or palpitations. She will be discharged home this afternoon per orthopedic surgery. She has arranged to stay with her son over the next few days so that he can assist her. She will begin outpatient physical therapy at [facility] on Friday. She has transportation arranged. She feels comfortable to return home. Review of Systems Review of Systems: All systems reviewed & are unremarkable except as noted in HPI and below Exam Narrative: Exam Narrative: Ms. King is well-nourished, well-appearing 85-year-old female who is lying supine in bed. She appears comfortable and is in NARD. Neuro: awake, alert and oriented x4, speech clear, no focal neuro deficits noted HEENMT: normocephalic, atraumatic, EOMI, sclerae anicteric, moist oral mucosa, tongue midline, nares patent Neck: supple, no lymphadenopathy Respiratory: clear to auscultation bilaterally, nonlabored breathing Cardio: regular rate, regular rhythm with S1-S2 Abdomen: nondistended, normoactive bowel sounds, soft, nontender to palpation, no rigidity or guarding Extremities: left leg is elevated. Left knee in brace. Left thigh minimally tender to palpation. Bilateral lower extremities with no edema, erythema, cyanosis, clubbing, or tenderness to palpation. DP pulses 2+ bilaterally. Sensation intact. Brisk capillary refill. Able to wiggle toes bilaterally. Skin: no rashes or lesions, warm and dry Psych: appropriate mood and affect, judgment and insight intact Objective Data Vital Signs Vital Signs: Vital Signs - 24 hr 02/21/21 11:15 02/21/21 16:00 02/21/21 16:15 Temperature 98.5 F 98.2 F Pulse Rate 85 83 85 Respiratory Rate 23 H 20 Blood Pressure 152
--- NOTE | 2021-02-22 10:53 | P.PNAN_ITS ---
Anes - Prog Note Post-Op Date/Time: 02/22/21 10:53 Cardiovascular status: normal Respiratory status: normal Airway patency: baseline Mental status: baseline Post-Op hydration status: normal Vital Signs: Last Vital Signs Temp 36.4 C 02/22/21 03:17 Pulse 67 02/22/21 03:17 Resp 20 02/22/21 03:17 BP 161/56 H 02/22/21 03:17 Pulse Ox 97 02/22/21 03:17 Pain Score (VAS): 12/06 I/O: Intake & Output 02/21/21 02/22/21 02/22/21 23:59 07:59 15:59 Intake Total 550 590 Output Total 150 300 Balance 400 290 Laboratory Tests 02/22/21 04:47 02/22/21 04:47 02/21/21 02/21/21 02/21/21 10:16 18:17 18:17 WBC RBC Hgb Hct MCV MCH MCHC RDW Plt Count 259 MPV 9.4 Immature Gran % (Auto) Neut % (Auto) Lymph % (Auto) [place] % (Auto) Eos % (Auto) Baso % (Auto) Lymph # (Auto) [place] # (Auto) Eos # (Auto) Baso # (Auto) Abs Immat Gran (auto) Absolute Neuts (auto) Absolute Nucleated RBC Nucleated RBC % Sodium Potassium Chloride Carbon Dioxide Anion Gap BUN Creatinine 0.80 Estim Creat Clear Calc 40 Estimated GFR > 60 Glucose Calcium Blood Type O Positive Antibody Screen Negative 02/22/21 02/22/21 04:47 04:47 WBC 12.6 H RBC 4.33 Hgb 12.3 Hct 38.3 MCV 88.5 MCH 28.4 MCHC 32.1 RDW 13.2 Plt Count 248 MPV 9.7 Immature Gran % (Auto) 0.5 Neut % (Auto) 79.4 H Lymph % (Auto) 8.0 L [place] % (Auto) 11.9 H Eos % (Auto) 0.0 Baso % (Auto) 0.2 Lymph # (Auto) 1.01 [place] # (Auto) 1.5 H Eos # (Auto) 0.0 Baso # (Auto) 0.0 Abs Immat Gran (auto) 0.06 H Absolute Neuts (auto) 10.0 H Absolute Nucleated RBC 0.0 Nucleated RBC % 0.0 Sodium 135 L Potassium 3.9 Chloride 103 Carbon Dioxide 29 Anion Gap 3 L BUN 10 Creatinine 0.70 Estim Creat Clear Calc 46 Estimated GFR > 60 Glucose 116 H Calcium 8.1 L Blood Type Antibody Screen Post-procedural complaints: none Patient Feedback: Patient satisfied with anesthetic care.
--- NOTE | 2021-02-22 15:15 | PC.NURSE ---
Pt sent home with mepilex AG dressing per Dr. Aponte.
== END 2021-02-22 15:15 | disposition home or self-care (01) ==
LOC: ANHSURGERY 09:21 → ANH2MED 17:34
PROVIDERS: Orthopaedic Surgery; PCP Family Medicine; Visit Provider Physician Assistant
PROC: (CPT 27447; principal; 2021-02-21 12:00)
DX: M17.12 Unilateral primary osteoarthritis, left knee (principal); I10 Essential (primary) hypertension; E78.5 Hyperlipidemia, unspecified
CPT/HCPCS: 27447; 36415; 73560; 80048; 80307; 82565; 83036; 85025; 85049; 86850; 86900; 86901; 87070; 97110; 97116; 97161; 97165; A9270; C1713; C1776; C9803; J0171; J0330; J0360; J0690; J1100; J1650; J2270; J2370; J2405; J2704; J2795; J3010; J3370; J7030; J7120; U0003; U0005